=== PATIENT | female | born 1995 | race Caucasian/White ===

== ENCOUNTER 2016-10-12 11:24 | Emergency (ER) | payer BC ==
[~2016-10-12] VITALS: Wt 54.4 kg
[~2016-10-12 11:24] MED LIST: AMOXICILLIN500 MG PO; AVPAK AZITHROM250 M1 PO; BIRTH CONTROL1 EAC1 PO; KEFLEX500 MG PO; MACROBID100 M1 PO; MOTRIN400 MG PO
[2016-10-12] MEDS ORDERED: FLONASE ALLERG9.9 ML NAS (11:48)
[2016-10-12] MEDS ORDERED: CLARITIN10 MG PO (11:48)
[2016-10-12] MEDS ORDERED: PREDNISONE10 MG PO (11:48)
== END 2016-10-12 12:01 | disposition home or self-care (01) ==
LOC: ED 11:24
DX: B34.9 Viral infection, unspecified (principal); R03.0 Elevated blood-pressure reading, without diagnosis of hypertension; Z79.899 Other long term (current) drug therapy

== ENCOUNTER → 2016-11-10 | Day surgery (SDC) | payer BC ==
[2016-11-10] VITALS (9 sets, daily range): BP systolic 95–122; BP diastolic 45–77
[~2016-11-10] VITALS: Ht 160 cm; Wt 59.0 kg
[~2016-11-10] MED LIST changes: +CLARITIN10 MG PO; +FLONASE ALLERG9.9 ML NAS; +LUVOX PO; +NORCO 5-325 TA1 EACH PO; +PREDNISONE10 MG PO; +URIBEL CAPSULE1 EACH PO
--- NOTE | ~2016-11-10 | WRIGHTHP ---
[place], [place] PATIENT HISTORY AND PHYSICAL EXAM NAME: STEVEN ANDREWS UNIT #: [id number] ROOM: DOCTOR: JT DANIELS MD BIRTHDATE: [birth year] DOS: 11/10/2016 HISTORY OF PRESENT ILLNESS: This patient is a 20-year-old white female who was last seen on 10/15/2016, having been treated to that point with rescue solutions for interstitial cystitis. The patient has also had intermittent right lower quadrant pain and dyspareunia. We had discussed a diagnostic laparoscopy at the beginning of the IC therapy if the results were not what the patient hoped to date. The patient's mother related a history over a past period of time of at least 5-6 ER visits for this right lower quadrant pain and presumed appendicitis, but CAT scans had always been negative for such. Pain is necessarily menstrual related and the patient is on control pill. We therefore at that point discussed the risks and benefits, indications, potential complications, and alternatives of diagnostic laparoscopy and understanding was stated by both the patient and her mother and consent was signed and the laparoscopy was scheduled for 11/10/2016. PAST MEDICAL HISTORY: Reveals the patient to be sexually active, but again having dyspareunia as we mentioned. She has presently had knee surgery for right ACL injury. SOCIAL HISTORY: Does not smoke or drink. ALLERGIES: She has no known allergies. MEDICATIONS: She is taking Ortho Tri-Cyclen control pills and Luvox 50 mg daily for depression/mood changes. She also uses Uribel p.r.n. and we did attempt to utilize the [employer], but again, the insurance company rejected the coverage. REVIEW OF SYSTEMS: Otherwise is stable. She had her last menstrual period on 10/01/2016, and as I said, she is a 0. FAMILY HISTORY: Reveals only maternal grandfather with gastric CA. PHYSICAL EXAMINATION: GENERAL: Reveals a pleasant white female. VITAL SIGNS: She is 5 feet 3 inches, 130 pounds, BMI is 23. Blood pressure is 110/58 and she is in no significant distress. HEENT AND NECK: Grossly intact. LUNGS: Grossly intact. CARDIAC: Grossly intact. BREASTS: Grossly intact. ABDOMEN: Grossly intact. EXTREMITIES: Grossly intact. NEUROLOGIC: Grossly intact. GENITOURINARY: External genitalia were normal. The vagina and cervix were also normal. Uterus is anteverted and anteflexed, without significant tenderness on manipulation. Left adnexa negative. Right adnexa negative to palpation, but slightly tender on exam. RECTAL: Deferred. [place], [place] PATIENT HISTORY AND PHYSICAL EXAM NAME: STEVEN ANDREWS UNIT #: [id number] ROOM: DOCTOR: JT DANIELS MD BIRTHDATE: [birth year] ASSESSMENT: The patient with chronic right lower quadrant pain and dyspareunia, requiring a number of visits to the Emergency Room, but with negative evaluations. She also has been treated for interstitial cystitis as well. At this time, our plan is to proceed with a diagnostic laparoscopy on 11/10/2016. JT DANIELS MD CM:HISPHYS:PATIENT HISTORY AND PHYSICAL EXAMINATION 1600 [id number] AG DANIELS MD 11/06/16 0913 interface
--- NOTE | ~2016-11-10 | O ---
[place], [place] OPERATIVE NOTE NAME: STEVEN ANDREWS UNIT #: [id number] ROOM: DOCTOR: JT ACEVEDO MD BIRTHDATE: [birth year] DOS: 11/10/2016 PREOPERATIVE DIAGNOSES: Chronic right lower quadrant pain, dyspareunia, history of interstitial cystitis, and several trips to the Emergency Room for this said pain. POSTOPERATIVE DIAGNOSES: Chronic right lower quadrant pain, dyspareunia, history of interstitial cystitis, and several trips to the Emergency Room for this said pain with 2 additional findings. Minimal endometriosis of bilateral uterosacral ligaments and posterior cul-de-sac and pericolonic fat to anterior abdominal wall adhesions, right mid abdomen, etiology unknown. Normal appearing appendix, gallbladder, and liver. OPERATION: Diagnostic laparoscopy, lysis of those adhesions noted above, and fulguration of the small number of very-very minimal endometriosis implants of both uterosacral ligaments and the posterior cul-de-sac. SURGEON: Jt Acevedo M.D. ANESTHESIA: General. ESTIMATED BLOOD LOSS: Minimal. REPLACEMENTS: IV fluids and Toradol. COMPLICATIONS: There were no complications. CONDITION: The patient's condition to recovery stable. OPERATIVE SUMMARY: The patient was taken to the operating room in supine position, general anesthesia, endotracheal intubation, lithotomy position, prepped and draped in routine manner. Sebastian catheter was placed to straight drain. Cervix was grasped with a tenaculum and a cervical manipulator placed. Infraumbilical and suprapubic incisions were made. A 5 mm trocar sleeve and laparoscope were then inserted through the infraumbilical incision, and once this was placed, insufflation with CO2 occurred. Under direct visualization, another 5 mm trocar and sleeve were placed through the suprapubic incision along with the probe. Systematic examination of the pelvis revealed the uterus to be normal in size, configuration, and mobility. The ovaries and tubes were completely normal bilaterally. All supporting structures were normal. The anterior cul-de-sac was normal. The posterior cul-de-sac and the inner surfaces of the uterosacral ligaments had a number of very small endometriosis implants noted. These were all fulgurated without complication using a hook cauterizer. We then examined in the upper abdomen revealing a rather significant band of pericolonic fat to anterior abdominal wall adhesions in the right mid abdominal area. These were lysed using the LigaSure device without complication. The appendix was visualized and was noted to be overall normal with no apparent adhesive disease or other atypicalities. The gallbladder and liver edge were also normal. The rest of the upper abdomen was within normal limits. At that point, having visualized the upper abdomen and the ascending and descending [place], [place] OPERATIVE NOTE NAME: STEVEN ANDREWS UNIT #: [id number] ROOM: DOCTOR: JT ACEVEDO MD BIRTHDATE: [birth year] colon as well as a slightly distended stomach, we then turned our attention back to the pelvis where we reexamined the tubes, ovaries, cul-de-sacs, uterus, and supporting structures and again found no other atypicalities and found everything else to be within normal limits. Once this was completed, we removed the suprapubic trocar sleeve and probe. Noting no excessive anterior abdominal bleeding, CO2 was allowed to escape, followed by removal of the infraumbilical trocar sleeve and laparoscope. Each incision was closed with subcuticular 3-0 Monocryl suture. Steri-Strips and dressings placed. Sebastian catheter was removed with a total urine output of clear urine of about 100 mL throughout the case. The instrumentation was removed from the cervix, and noting no excessive bleeding from the cervical area, the patient was cleaned off, taken out of lithotomy position, awakened, extubated, and transferred to recovery in satisfactory condition. Her vital signs were stable. Sponge and instrument count was correct and hemostasis was achieved. JT ACEVEDO MD CM:OPRECORD:OPERATIVE NOTE [id number] AG ACEVEDO MD 11/10/16 0859 interface
== END | disposition home or self-care (01) ==
LOC: SDC 11-04 09:30
DX: N80.0 Endometriosis of uterus (principal); N94.10 Unspecified dyspareunia; K66.0 Peritoneal adhesions (postprocedural) (postinfection); F31.9 Bipolar disorder, unspecified; Z83.3 Family history of diabetes mellitus; Z80.0 Family history of malignant neoplasm of digestive organs

== ENCOUNTER → 2017-01-12 | Outpatient (CLI) | payer OTHER | END | disposition home or self-care (01) | LOC: RESCLI 02:07 | DX: N30.10 Interstitial cystitis (chronic) without hematuria (principal) ==

== ENCOUNTER → 2017-04-14 | Outpatient (CLI) | payer OTHER | END | disposition home or self-care (01) | LOC: RESCLI 04:55 | DX: N30.10 Interstitial cystitis (chronic) without hematuria (principal) ==

== ENCOUNTER 2017-07-04 12:07 | Emergency (ER) | payer OTHER ==
[~2017-07-04] VITALS: Ht 160 cm; Wt 61.2 kg
[2017-07-04] MEDS ORDERED: FLONASE ALLERG9.9 ML NAS (12:41)
[2017-07-04] MEDS ORDERED: CLARITIN10 MG PO (12:41)
[2017-07-04] MEDS ORDERED: ZOFRAN4 MG PO (12:41)
== END 2017-07-04 13:50 | disposition home or self-care (01) ==
LOC: ED 12:07
DX: B34.9 Viral infection, unspecified (principal); J02.9 Acute pharyngitis, unspecified; Z91.018 Allergy to other foods; Z79.899 Other long term (current) drug therapy

== ENCOUNTER → 2017-07-31 | Outpatient (CLI) | payer OTHER ==
[~2017-07-31] MED LIST changes: +ZOFRAN4 MG PO
== END | disposition home or self-care (01) ==
LOC: US 06:28
DX: R10.31 Right lower quadrant pain (principal)

== ENCOUNTER 2017-11-01 12:31 | Emergency (ER) | payer OTHER ==
[~2017-11-01] VITALS: Wt 58.1 kg
[2017-11-01 12:54] LABS: BASO % 0.6 % (0.0-1.0); EOS # 0.1 10*3/uL (0.0-0.4); EOS % 2.7 % (1.0-4.0); HEMATOCRIT 42.7 % (37.0-47.0); HEMOGLOBIN 13.8 g/dl (12.0-16.0); LYMPH # 1.9 10*3/uL (1.3-4.4); LYMPH % 40.1 % (27.0-41.0); MEAN CELL VOLUME 89.7 fl (81.0-99.0); MEAN CORPUSCULAR HGB CONC 32.3 g/dl (33.0-37.0); MEAN PLATELET VOLUME 11.5 fl (9.6-12.3); MONO # 0.3 10*3/uL (0.1-1.0); MONO % 6.4 % (3.0-9.0); NEUT # 2.4 10*3/uL (2.3-7.9); PLATELET COUNT AUTOMATED 178 10*3/uL (130-400); RED BLOOD COUNT 4.76 10*6/uL (4.10-5.10); RED CELL DISTRI WIDTH 12.6 % (0-14.5); WHITE BLOOD COUNT 4.8 10*3/uL (4.8-10.8)
[2017-11-01 12:55] LABS: BILIRUBIN NEGATIVE (NEGATIVE); BLOOD NEGATIVE (NEGATIVE); CLARITY CLEAR (CLEAR); COLOR YELLOW (YELLOW); GLUCOSE NEGATIVE (NEGATIVE); KETONE NEGATIVE (NEGATIVE); LEUKO ESTERASE NEGATIVE (NEGATIVE); NITRITE NEGATIVE (NEGATIVE); SPECIFIC GRAVITY 1.015 (1.005-1.030); UROBILINOGEN 0.2 E.U./dl (0.2-1.0)
[2017-11-01 13:05] LABS: MUCOUS 3+; RBC 0-2 rbc/hpf (0-2)
[2017-11-01 13:08] LABS: ALBUMIN 3.8 gm/dl (3.1-4.5); ALKALINE PHOSPHATASE 71 U/L (45-117); BUN 7 mg/dl (7-24); CHLORIDE 103 mmol/L (98-107); POTASSIUM 3.7 mmol/L (3.5-5.1); SGOT/AST 19 IU/L (3-35); SGPT/ALT 27 U/L (12-78); SODIUM 139 mmol/L (136-145); TOTAL PROTEIN 7.4 gm/dL (6.4-8.2)
[2017-11-01] MEDS ORDERED: ELMIRON100 MG PO (13:22)
== END 2017-11-01 15:24 | disposition home or self-care (01) ==
LOC: ED 12:31
PROVIDERS: Nurse Practitioner Family
DX: R10.32 Left lower quadrant pain (principal); Z79.899 Other long term (current) drug therapy; Z91.018 Allergy to other foods

== ENCOUNTER → 2018-04-13 | Outpatient (CLI) | payer OTHER ==
[~2018-04-13] MED LIST changes: +ELMIRON100 MG PO
== END | disposition home or self-care (01) ==
LOC: RESCLI 02:16
DX: Z00.01 Encounter for general adult medical examination with abnormal findings (principal); Z23 Encounter for immunization; N30.10 Interstitial cystitis (chronic) without hematuria; Z79.899 Other long term (current) drug therapy

== ENCOUNTER 2018-09-30 12:24 | Emergency (ER) | payer OTHER ==
[~2018-09-30] VITALS: Ht 160 cm; Wt 58.1 kg
== END 2018-09-30 13:35 | disposition home or self-care (01) ==
LOC: ED 12:24
DX: J02.9 Acute pharyngitis, unspecified (principal); R09.81 Nasal congestion; M54.2 Cervicalgia; Z91.018 Allergy to other foods; Z79.899 Other long term (current) drug therapy

== ENCOUNTER 2019-03-21 10:22 | Emergency (ER) | payer OTHER ==
[~2019-03-21] VITALS: Ht 160 cm; Wt 59.9 kg
[2019-03-21] MEDS ORDERED: DIFLUCAN150 MG PO (12:02)
[2019-03-21] MEDS ORDERED: AMOXICILLIN500 M2 PO (12:02)
== END 2019-03-21 12:00 | disposition home or self-care (01) ==
LOC: ED 10:22
DX: J02.9 Acute pharyngitis, unspecified (principal); Z79.899 Other long term (current) drug therapy; Z91.018 Allergy to other foods

== ENCOUNTER → 2019-09-19 | Outpatient (CLI) | payer OTHER ==
[~2019-09-19] MED LIST changes: +AMOXICILLIN500 M2 PO; +DIFLUCAN150 MG PO
== END | disposition home or self-care (01) ==
LOC: US 16:53
DX: K59.00 Constipation, unspecified (principal)

== ENCOUNTER → 2020-06-30 | Outpatient (CLI) | payer OTHER | END | disposition home or self-care (01) | LOC: COVID19 10:30 | PROVIDERS: ATTEND Internal Medicine | DX: Z20.828 Contact with and (suspected) exposure to other viral communicable diseases (principal) ==

== ENCOUNTER → 2020-11-22 | Outpatient (CLI) | payer BC | END | disposition home or self-care (01) | LOC: US 16:36 | PROVIDERS: ATTEND Nurse Practitioner Women's Health | DX: R10.2 Pelvic and perineal pain (principal); Z87.42 Personal history of other diseases of the female genital tract ==

== ENCOUNTER → 2020-12-31 | Day surgery (SDC) | payer BC ==
[~2020-12-31] VITALS: Ht 160 cm; Wt 63.5 kg
[~2020-12-31] MED LIST changes: +ACYCLOVIR400 MG PO; +BUSPIRONE HCL7.5 MG PO; +PERCOCET 5-3251 EACH PO
[2020-12-31 08:59] VITALS: BP 107/71
[2020-12-31 09:52] VITALS: BP 96/57
[2020-12-31 10:06] VITALS: BP 101/57
[2020-12-31 10:21] VITALS: BP 105/63
== END | disposition home or self-care (01) ==
LOC: SDC 12-28 08:45
PROVIDERS: ATTEND Surgery
DX: D17.1 Benign lipomatous neoplasm of skin and subcutaneous tissue of trunk (principal); F41.9 Anxiety disorder, unspecified; Z98.890 Other specified postprocedural states; Z79.899 Other long term (current) drug therapy; Z20.822 Contact with and (suspected) exposure to COVID-19

== ENCOUNTER → 2021-07-25 | Outpatient (CLI) | payer BC | END | disposition home or self-care (01) | LOC: RESCLI 06:38 | PROVIDERS: ATTEND Internal Medicine | DX: F41.9 Anxiety disorder, unspecified (principal); F39 Unspecified mood [affective] disorder; B00.9 Herpesviral infection, unspecified; Z79.899 Other long term (current) drug therapy; Z98.890 Other specified postprocedural states ==

== ENCOUNTER → 2021-10-29 | Outpatient (CLI) | payer BC | END | disposition home or self-care (01) | LOC: US 12:46 | PROVIDERS: ATTEND Nurse Practitioner Women's Health | DX: N63.20 Unspecified lump in the left breast, unspecified quadrant (principal); N64.4 Mastodynia ==

== ENCOUNTER → 2023-01-13 | Outpatient (CLI) | payer BC ==
[2023-01-13 17:33] LABS: BASO # 0.1 10*3/uL (0.0-0.1); BASO % 0.6 % (0.0-1.0); EOS # 0.1 10*3/uL (0.0-0.4); EOS % 1.8 % (1.0-4.0); HEMATOCRIT 45.6 % (37.0-47.0); LYMPH # 1.9 10*3/uL (1.3-4.4); LYMPH % 23.9 % (27.0-41.0); MEAN CORPUSCULAR HGB 31.3 pg (27.0-31.0); MEAN CORPUSCULAR HGB CONC 34.4 g/dl (33.0-37.0); MEAN PLATELET VOLUME 11.8 fl (9.6-12.3); MONO # 0.5 10*3/uL (0.1-1.0); MONO % 6.2 % (3.0-9.0); NEUT # 5.3 10*3/uL (2.3-7.9); NEUT % 67.4 % (47.0-73.0); PLATELET COUNT AUTOMATED 186 10*3/uL (130-400); RED BLOOD COUNT 5.01 10*6/uL (4.10-5.10); RED CELL DISTRI WIDTH 12.1 % (0-14.5); WHITE BLOOD COUNT 7.9 10*3/uL (4.8-10.8)
[2023-01-13 18:01] LABS: ALKALINE PHOSPHATASE 86 U/L (46-116); BUN 7 mg/dl (9-23); CHLORIDE 105 mmol/L (98-107); FREE T4 1.05 ng/dl (0.89-1.76); POTASSIUM 3.7 mmol/L (3.4-5.1); SGPT/ALT 13 U/L (10-49); TOTAL PROTEIN 7.5 gm/dL (6.0-8.0)
[2023-01-13 18:04] LABS: VITAMIN D, 25-HYDROXY 18.3 ng/mL (30-100)
[2023-01-14 10:07] LABS: HEPATITIS B SURFACE AB Non Reactive (.)
[2023-01-14 15:07] LABS: ENDOMYSIAL ANTIBODY IgA Negative (Negative)
[2023-01-14 16:08] LABS: t-TRANSGLUTAMINASE (tTG) IGA <2 U/mL (0-3); t-TRANSGLUTAMINASE (tTG) IgG 7 U/mL (0-5)
== END | disposition home or self-care (01) ==
LOC: RESCLI 00:35
PROVIDERS: Internal Medicine; ATTEND Internal Medicine
DX: K52.9 Noninfective gastroenteritis and colitis, unspecified (principal); F17.210 Nicotine dependence, cigarettes, uncomplicated; F41.9 Anxiety disorder, unspecified; F39 Unspecified mood [affective] disorder; B00.9 Herpesviral infection, unspecified; Z98.890 Other specified postprocedural states; Z79.899 Other long term (current) drug therapy

== ENCOUNTER → 2023-01-14 | Outpatient (CLI) | payer BC | END | disposition home or self-care (01) | LOC: LAB 12:53 | PROVIDERS: ATTEND Internal Medicine | DX: K52.9 Noninfective gastroenteritis and colitis, unspecified (principal) ==

== ENCOUNTER → 2023-01-20 | Outpatient (CLI) | payer BC | END | disposition home or self-care (01) | LOC: US 01:45 | PROVIDERS: ATTEND Internal Medicine | DX: K52.9 Noninfective gastroenteritis and colitis, unspecified (principal); K76.0 Fatty (change of) liver, not elsewhere classified; K82.9 Disease of gallbladder, unspecified ==

== ENCOUNTER → 2023-01-22 | Outpatient (CLI) | payer BC ==
[~2023-01-22] MED LIST changes: +BIRTH CONTROL
[2023-01-23 14:09] LABS: ANTI-SMOOTH MUSCLE ANTIBODY 5 Units (0-19)
[2023-01-23 15:07] LABS: ANTI-DSDNA ANTIBODIES 1 IU/mL (0-9); ANTI-RNP ANTIBODIES 0.5 AI (0.0-0.9); ANTICHROMATIN ANTIBODIES <0.2 AI (0.0-0.9); ANTISCLERODERMA-70 AB <0.2 AI (0.0-0.9); SJOGREN ANTI-SS-A <0.2 AI (0.0-0.9); SJOREN AB, ANTI-SS-B <0.2 AI (0.0-0.9)
[2023-01-28 18:11] LABS: DQ2 Positive (.); DQ8 Negative (.)
== END | disposition home or self-care (01) ==
LOC: LAB 14:35
PROVIDERS: ATTEND Internal Medicine
DX: K76.0 Fatty (change of) liver, not elsewhere classified (principal)

== ENCOUNTER → 2023-02-02 | Day surgery (SDC) | payer BC ==
[~2023-02-02] VITALS: Ht 160 cm; Wt 68.0 kg
[2023-02-02 08:11] VITALS: BP 109/74
[2023-02-02 09:20] VITALS: BP 114/94
[2023-02-02 09:35] VITALS: BP 99/54
[2023-02-02 09:51] VITALS: BP 104/57
== END ==
LOC: SDC 01-30 10:15
PROVIDERS: ATTEND Surgery
DX: R19.7 Diarrhea, unspecified (principal); R10.9 Unspecified abdominal pain; R11.2 Nausea with vomiting, unspecified; K29.50 Unspecified chronic gastritis without bleeding; R45.4 Irritability and anger; N30.10 Interstitial cystitis (chronic) without hematuria; F39 Unspecified mood [affective] disorder; K76.0 Fatty (change of) liver, not elsewhere classified; F41.9 Anxiety disorder, unspecified; F32.A Depression, unspecified; F17.200 Nicotine dependence, unspecified, uncomplicated; Z98.890 Other specified postprocedural states

== ENCOUNTER → 2023-02-12 | Outpatient (CLI) | payer BC | END | disposition home or self-care (01) | LOC: NM 07:00 | PROVIDERS: ATTEND Nurse Practitioner Family | DX: R93.5 Abnormal findings on diagnostic imaging of other abdominal regions, including retroperitoneum (principal) ==

== ENCOUNTER → 2023-03-02 | Outpatient (CLI) | payer BC | END | disposition home or self-care (01) | LOC: LAB 03:00 | PROVIDERS: ATTEND Nurse Practitioner Family | DX: A04.8 Other specified bacterial intestinal infections (principal) ==

== ENCOUNTER → 2024-09-01 | Outpatient (CLI) | payer BC | END | disposition home or self-care (01) | LOC: RESCLI 09:49 | PROVIDERS: ATTEND Internal Medicine | DX: H66.90 Otitis media, unspecified, unspecified ear (principal); F41.9 Anxiety disorder, unspecified; Z79.899 Other long term (current) drug therapy; Z98.890 Other specified postprocedural states ==

== ENCOUNTER → 2024-10-12 | Outpatient (CLI) | payer BC ==
[~2024-10-12] MED LIST changes: +Tdap Vaccine 0.5 ML SYR (Adult Vaccine) IM ONE
== END | disposition home or self-care (01) ==
LOC: RESCLI 10-11 03:30
PROVIDERS: ATTEND Internal Medicine
DX: Z23 Encounter for immunization (principal); H69.80 Other specified disorders of Eustachian tube, unspecified ear; F41.9 Anxiety disorder, unspecified; Z98.890 Other specified postprocedural states